=== PATIENT | male | born 1960 | race Asian ===

== ENCOUNTER 2024-04-18 10:38 | Observation (INO) | payer BC ==
[2024-04-17 12:23] VITALS: BMI 22.2
[2024-04-18] MEDS ORDERED: Ropivacaine 0.5% HCl/PF (150 MG/30 ML VIAL) ONE (11:30)
[2024-04-18] MEDS ORDERED: Ropivacaine 0.2% HCl/PF 20 ML ONE (11:30)
[2024-04-18] MEDS ORDERED: Midazolam HCl 2 mg/2 ml Vial ONE (11:30)
[2024-04-18] MEDS ORDERED: fentaNYL 50 mcg/mL 1 mL Vial ONE (11:30)
[2024-04-18] MEDS ORDERED: Ondansetron PF 4 MG/2 ML Vial IVP PRN (12:15)
[2024-04-18] MEDS ORDERED: Zolpidem Tartrate 5 MG TAB PO PRN (12:15)
[2024-04-18] MEDS ORDERED: Promethazine HCl 25 MG/ML VIAL IM PRN (12:15)
[2024-04-18] MEDS ORDERED: Ropivacaine 0.2% 550 ML 550 ML NERVE BLCK SCH (12:15)
[2024-04-18] MEDS ORDERED: traMADol HCl 50 MG TAB PO PRN ×2 (12:15)
[2024-04-18] MEDS ORDERED: CEFAZOLIN 2 GM VIAL ONE (12:42)
[2024-04-18] MEDS ORDERED: Sodium Chloride 0.9% 100 ML ONE (12:42)
[2024-04-18] MEDS ORDERED: PROPOFOL 200 MG/20 ML VIAL ONE (13:05)
[2024-04-18] MEDS ORDERED: Dexamethasone 20 MG/5 ML VIAL ONE (13:05)
[2024-04-18] MEDS ORDERED: Ketorolac Tromethamine 30 MG (1 mL) VIAL ONE (13:05)
[2024-04-18] MEDS ORDERED: Ondansetron PF 4 MG/2 ML Vial ONE (13:05)
[2024-04-18] MEDS ORDERED: Bupivacaine HCl 0.5%/Epinephrine 1:200,000/PF 30 ml Vial ONE (13:30)
[2024-04-18] MEDS ORDERED: fentaNYL 50 mcg/mL 1 mL Vial SLOW IVP PRN (14:35)
[2024-04-18] MEDS ORDERED: Communication Order-Pharmacy FS SCH (14:45)
[2024-04-18] MEDS: TETANUS, DIPHTHERIA TOX,ADULT (TDVAX) 0.5 ML VIAL IM ONE (15:53)
[2024-04-18] MEDS: Aspirin 81 mg Enteric Coated Tablet PO SCH (21:01)
[2024-04-19] MEDS: HYDROcodone/Acetaminophen 5/325 mg Tablet PO PRN ×2 (12:46→21:15)
[2024-04-20 13:30] VITALS: BP 143/89; TEMP 97.6
== END 2024-04-20 12:26 | disposition home or self-care (01) ==
LOC: SDC 10:38 → SJJU 14:35
PROVIDERS: ADMIT Orthopaedic Surgery; ATTEND Orthopaedic Surgery
PROC: 0PSJ04Z Reposition Left Radius with Internal Fixation Device, Open Approach (ICD-10-PCS; principal; 2024-04-18)
DX: S52.262A Displaced segmental fracture of shaft of ulna, left arm, initial encounter for closed fracture (principal); S52.252A Displaced comminuted fracture of shaft of ulna, left arm, initial encounter for closed fracture; E78.5 Hyperlipidemia, unspecified; I10 Essential (primary) hypertension; Z79.899 Other long term (current) drug therapy; Z98.890 Other specified postprocedural states; V89.2XXA Person injured in unspecified motor-vehicle accident, traffic, initial encounter
CPT/HCPCS: A4306; C1713; C1874; J1100; J1885; J2250; J2405; J2704; J2795; J3010; J3490